=== PATIENT | male | born 1975 | race Caucasian/White ===

== ENCOUNTER 2018-12-31 22:03 | Observation (INO) ==
[2018-12-31] MEDS ORDERED: Aspirin 81 MG TAB.CHEW PO ONE (22:14)
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
[2018-12-31 22:24] LABS: Basophils # 0.1 K/mcL (0.0-0.2); Basophils % 0.6 %; Eosinophils # 0.3 K/mcL (0.0-0.6); Hematocrit 49.1 % (37.5-50.1); Hemoglobin 16.5 g/dL (12.9-16.9); Immature Granulocytes % 0.4 % (0-4); Lymphocytes # 3.4 K/mcL (0.6-4.6); Mean Corpuscular HGB Conc 33.6 g/dL (31.6-35.5); Mean Corpuscular Hemoglobin 29.6 pg (28.0-33.3); Monocytes # 0.9 K/mcL (0.0-1.3); Monocytes % 6.7 %; Neutrophils # 8.5 K/mcL (1.6-8.9); Platelet Count 310 K/mcL (140-400); Red Blood Count 5.58 M/mcL (4.19-5.50); Red Cell Distribution Width 13.8 % (11.5-14.5); Segmented Neutrophils % 64.3 %; White Blood Count 13.2 K/mcL (4.3-11.1)
[2018-12-31 22:38] LABS: INR 0.9; Prothrombin Time 10.3 Seconds (9.4-12.1)
[2018-12-31 22:41] LABS: Activated Partial Thrombo Time 34.7 Seconds (26.0-36.0)
[2018-12-31] MEDS: Nitroglycerin 0.4 MG TAB.SUBL SL PRN ×2 (22:42→22:59)
[2018-12-31 22:46] LABS: Albumin 4.4 g/dL (3.5-5.7); Albumin/Globulin Ratio 1.5 (1.1-2.2); BUN/Creatinine Ratio 15 (6-26); Bilirubin,Indirect 0.2 mg/dL (0.0-1.2); Bilirubin,Total 0.2 mg/dL (0.3-1.0); Blood Urea Nitrogen 15 mg/dL (6-20); Calcium 9.5 mg/dL (8.6-10.3); Carbon Dioxide 30 mEq/L (23-29); Chloride 106 mEq/L (98-107); Glucose 71 mg/dL (70-105); Osmolality,Calculated 295 (280-300); Potassium 3.4 mEq/L (3.5-5.1); Sodium 143 mEq/L (136-145); Total Protein 7.4 g/dL (6.4-8.9); eGFR For African Americans > 60 (> 60); eGFR For Non-African Americans > 60 (> 60)
[2018-12-31 22:49] LABS: Troponin I < 0.03 ng/mL (< 0.04)
[2018-12-31] MEDS ORDERED: Naloxone 0.4 MG/ML INJ IVP PRN (23:21)
[2019-01-01] MEDS ORDERED: Naloxone 0.4 MG/ML INJ IVP PRN (02:38)
[2019-01-01] MEDS ORDERED: Nitroglycerin 0.4 MG TAB.SUBL SL PRN (02:38)
[2019-01-01] MEDS ORDERED: Acetaminophen 325 MG TABLET PO PRN (08:22)
[2019-01-01 11:08] VITALS: BP 97/60
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
--- NOTE | 2019-01-01 12:55 | Discharge Summary ---
Orders not resulted at time of discharge: Pending orders 12/31/18 22:14 ECG 12 lead ECG [ECG] Stat Date of Encounter: 01/01/19 Time of Encounter: 12:30 - Discharge Diagnosis (1) Chest pain Priority: Primary Status: Resolved Qualifiers: Chest pain type: unspecified Qualified Code(s): R07.9 - Chest pain, unspecified Hospital course: Mr. Freeman is a 43 year old male who came to emergency room stating he had onset of discomfort in his chest 3-4 days previously. He describes it as a tightness sensation. It was in his left chest but did not radiate. He took multiple aspirin 81 mg without relief. He came to emergency room was evaluated and admitted to [facility] for ongoing care needs. Initial orders were written by the emergency room physician. I saw him the afternoon of January 01 and performed a history physical and discharge. When I saw him he was pain-free and wished to be discharged home. Repeat cardiac enzymes show no evidence of myocardial damage. The etiology of the pain was not determined with certainty. I encouraged him to discontinue smoking but he refused to consider this. He states "when I I ". He does not have a family physician I feel it is unlikely he will follow with his PCP on a regular basis. - Time Spent with Patient Total time spent providing and/or coordinating discharge services: - Discharge Medications Allergies/Adverse Reactions: Allergy/AdvReac Type Severity Reaction Status Date / Time No Known Allergies Allergy Verified 12/31/18 22:10 Date of admission: 01/01/19 01:55 Primary care physician: PCP NONE - Constitutional Vitals: Temp Pulse Resp BP Pulse Ox 97.4 F L 78 16 97/60 97 01/01/19 11:06 01/01/19 11:06 01/01/19 11:06 01/01/19 11:06 01/01/19 11:06 - Patient Status Disposition: Home, Self-Care Condition: Good - Discharge Instructions Follow Up With: NONE,PCP [Primary Care Provider] - 1 week - Diet and Activity Activity: resume usual activities as tolerated Diet: advance to your usual diet
--- NOTE | 2019-01-01 14:41 | Electrocardiograph Report ---
[address] [address] Test Date: 2018-12-31 Pat Name: Ke Freeman Department: [id number] Room: [facility] Gender: M Shank Stitcher: : 1975 Requested By: Alisia Hoffman Order Number: [id number] Reading MD: Jason Raya Measurements Intervals [place] Rate: 98 P: 86 NE: 112 QRS: 81 QRSD: 107 T: 78 QT: 350 QTc: 406 Interpretive Statements SINUS RHYTHM WITH SHORT NE INTERVAL BASELINE ARTIFACT Electronically Signed On 01-01-2019 14:40:00 EDT by Jason Raya
== END 2019-01-01 13:13 | disposition home or self-care (01) ==
LOC: EMEROOPIK 22:03 → INPPIK 22:03
PROVIDERS: ADMIT Internal Medicine; ATTEND Internal Medicine